=== PATIENT | male | born 1990 | race Caucasian/White ===

== ENCOUNTER 2018-09-23 14:50 | Outpatient (CLI) | payer BC, SELFPAY ==
--- NOTE | 2018-09-23 15:11 | DI.CT_ITS ---
SYMPTOMS/DIAGNOSIS: HEADACHE ASSOCIATED WITH ORGASM, G44.82, H/O MIGRAINES NONCONTRAST HEAD CT: There are no prior comparison exams. No intracranial hemorrhage, mass or infarct is seen. The ventricles are normal in size. The sinuses appear clear. The mastoid air cells also appear clear. The orbits are unremarkable. IMPRESSION: Negative head CT.
== END 2018-09-23 15:10 ==
PROVIDERS: PCP Nurse Practitioner Family; Visit Provider Nurse Practitioner Family
DX: G44.82 Headache associated with sexual activity (principal)
CPT/HCPCS: 70450

== ENCOUNTER 2025-01-12 17:06 | Outpatient (REF) | payer BC, SELFPAY ==
[2025-01-12 19:52] LABS: Hemoglobin A1C 5.3 % (<5.7)
[2025-01-12 19:56] LABS: ALT 66 U/L (16-63); AST 34 U/L (15-37); Albumin 4.7 g/dL (3.4-5.0); Alkaline Phosphatase 77 U/L (46-116); Anion Gap 9.7 mmol/L (3-11); BUN 10 mg/dL (7-18); Bilirubin, Total 0.9 mg/dL (0.2-1.0); CO2 28.3 mmol/L (21.0-32.0); CREATININE 0.9 mg/dL (0.70-1.30); Calcium 9.4 mg/dL (8.5-10.1); Calculated LDL 90 mg/dL (<100); Chloride 103 mmol/L (98-107); Cholesterol 166 mg/dL (<200); Estimated GFR 114.93 (mL/min/1.73m2); Glucose 82 mg/dL (74-106); HDL Cholesterol 41 mg/dL (>or=40); Potassium 3.8 mmol/L (3.5-5.1); Sodium 141 mmol/L (136-145); Total Protein 8.1 g/dL (6.4-8.2); Triglyceride 176 mg/dL (<150)
== END 2025-01-12 17:07 | disposition home or self-care (01) ==
LOC: NCHCN 17:06
PROVIDERS: PCP Nurse Practitioner Family; Visit Provider Family Medicine
DX: Z00.00 Encounter for general adult medical examination without abnormal findings (principal)
CPT/HCPCS: 80053; 80061; 83036